=== PATIENT | male | born 1990 ===

== ENCOUNTER 2017-08-31 19:34 | Emergency (ER) | payer OTHER ==
[2017-08-31] MEDS ORDERED: BACIGUENT PACKET TP ONE (19:46)
[2017-08-31] MEDS ORDERED: Sodium Chloride 0.9% 1000 ML 1,000 ML IV STA (19:48)
[2017-08-31 19:49] VITALS: BP 135/87; O2SAT 100
[2017-08-31] MEDS ORDERED: MORPHINE SULFATE 4 MG INJ IV ONE (19:49)
[2017-08-31] MEDS ORDERED: Zofran 4 MG/2 ML VIAL IV ONE (19:49)
[2017-08-31] MEDS ORDERED: Adacel Vial IM ONE ×2 (19:50→19:57)
[2017-08-31] MEDS ORDERED: Zofran 4 MG/2 ML VIAL ONE (19:53)
[2017-08-31] MEDS ORDERED: MORPHINE SULFATE 4 MG INJ ONE (19:53)
[2017-08-31] MEDS ORDERED: Sodium Chloride 0.9% 1000 ML 1,000 ML ONE (19:53)
[2017-08-31] MEDS ORDERED: BACIGUENT PACKET ONE (19:53)
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
[2017-08-31 20:29] VITALS: PULSE 102
== END 2017-08-31 20:31 | disposition short-term general hospital (02) ==
LOC: ED 19:34
DX: T20.20XA Burn of second degree of head, face, and neck, unspecified site, initial encounter (principal); T20.22XA Burn of second degree of lip(s), initial encounter; T23.202A Burn of second degree of left hand, unspecified site, initial encounter; T21.21XA Burn of second degree of chest wall, initial encounter; W40.1XXA Explosion of explosive gases, initial encounter
CPT/HCPCS: 36000; 90471; 90715; 96360; 96372; 96374; 96375; 99291; J2270; J2405; A9270-GY

== ENCOUNTER 2021-03-14 21:55 | Emergency (ER) | payer BC ==
[2021-03-14 21:57] VITALS: O2SAT 100
[2021-03-14] MEDS ORDERED: MORPHINE SULFATE 4 MG INJ IV ONE (22:21)
[2021-03-14] MEDS ORDERED: Zofran 4 MG/2 ML VIAL IV ONE (22:21)
[2021-03-14] MEDS ORDERED: Sodium Chloride 0.9% 1000 ML 1,000 ML IV STA (22:21)
[2021-03-14] MEDS ORDERED: GI COCKTAIL 45 ML (Maalox/Lidocaine) PO ONE (22:21)
[2021-03-14] MEDS ORDERED: PROTONIX 40 MG IV IV ONE ×2 (22:21→22:42)
--- NOTE | 2021-03-14 22:23 | ERPHSYRPT ---
- History of Present Illness Time Seen by Provider: 03/14/21 22:00 Historian: patient Exam Limitations: no limitations Patient Subjective Stated Complaint: I've had this terrible abd pain that started about 2109. Triage Nursing Assessment: pt c/o mid upper abd pain that goes around like a band on both sides to his back. Abd soft with active bs x4 quad, tender on palpation. Pt ate around 6pm, pain started around 2109. Pt had similar incidence to this a few months ago and was seen at [facility] but they told him "nothing was wrong". Pt was not scanned according to him. Lungs clear, heart tones reg. Physician History: 30 years old male presented in the ER with chief complaint of sudden onset upper abdominal/epigastric pain almost an hour prior to arrival, constant, moderate to severe intensity with associated nausea and vomiting nonprojectile, nonbilious without hematemesis. Reports having bandlike feeling. No chest pain. Reports having similar symptoms few weeks ago. No shortness of breath. Timing/Duration: hour(s) (1), constant, sudden, worse Activities at Onset: rest Quality: sharpness, stabbing Abdominal Pain Onset Location: RUQ, LUQ, epigastric Pain Radiation: back Severity of Pain-Max: severe Severity of Pain-Current: severe Modifying Factors: Improves With: nothing Associated Symptoms: nausea Previous symptoms: same symptoms as today Allergies/Adverse Reactions: No Known Drug Allergies Allergy (Verified 03/14/21 22:06) Home Medications: No Home Meds [No Home Meds] 1 [facility] UD 08/08/15 [History] Hx Tetanus, Diphtheria Vaccination/Date Given: Yes Hx Influenza Vaccination/Date Given: No Hx Pneumococcal Vaccination/Date Given: No Immunizations Up to Date: Yes Travel Risk - International Travel Have you traveled outside of the country in past 3 weeks: No - Coronavirus Screening Are you exhibiting any of the following symptoms?: No Close contact with a COVID-19 positive Pt in past 14-21 Days: No - Vaccine Status Have you recieved a Covid-19 vaccination: No - Review of Systems Constitutional: No Symptoms Eyes: No Symptoms Ears, Nose, & Throat: No Symptoms Respiratory: No Symptoms Cardiac: No Symptoms Abdominal/Gastrointestinal: Abdominal Pain, Nausea Genitourinary Symptoms: No Symptoms Musculoskeletal: No Symptoms Skin: No Symptoms Neurological: No Symptoms Psychological: No Symptoms Endocrine: No Symptoms Hematologic/Lymphatic: No Symptoms Immunological/Allergic: No Symptoms - Past Medical History Pertinent Past Medical History: Yes Cardiac History: Hypertension Musculoskeletal History: Fractures - Past Surgical History Past Surgical History: No - Social History Smoking Status: Never smoker Exposure to second hand smoke: Yes Drug Use: none Patient Lives Alone: No - Nursing Vital Signs Nursing Vital Signs: Initial Vital Signs Temperature 98.2 F 03/14/21 21:56 Pulse Rate 75 03/14/21 21:56 Respiratory Rate 22 03/14/21 21:56 Blood Pressure 106/106 03/14/21 21:56 O2 Sat by Pulse Oximetry 100 03/14/21 21:56 Pain Scale Pain Intensity 0 - Physical Exam General Appearance: no apparent distress, alert, anxiety Eye Exam: PERRL/EOMI Ears, Nose, Throat Exam: normal ENT inspection Neck Exam: normal inspection, full range of motion Respiratory Exam: normal breath sounds, lungs clear Cardiovascular Exam: regular rate/rhythm, normal heart sounds Gastrointestinal/Abdomen Exam: soft, normal bowel sounds, tenderness (Epigastrium/right upper and left upper quadrant with some guarding on the right.) Back Exam: normal inspection, normal range of motion Extremity Exam: normal inspection, normal range of motion Neurologic Exam: alert, oriented x 3, cooperative Skin Exam: normal color SpO2 Interpretation: normal SpO2: 100 O2 Delivery: Room Air Ordered Tests: Medication Summary Discontinued Medications Generic Name Dose Route Start Last Admin Trade Name Freq PRN Reason Stop Dose Admin Al Hydrox/Mg Hydrox/Simethicone Confirm 03/14/21 22:45 Maalox Es 30 Ml Unit Dose Administered 03/14/21 22:46 Dose 30 ml .ROUTE .STK-MED ONE Sodium Chloride 1,000 mls @ 999 mls/hr 03/14/21 22:21 03/14/21 22:54 Sodium Chloride 0.9% 1000 Ml IV 03/14/21 23:21 999 mls/hr .Q1H1M STA Administration Sodium Chloride Confirm 03/14/21 22:45 Sodium Chloride 0.9% 1000 Ml Administered 03/14/21 22:46 Dose 1,000 mls @ ud .ROUTE .STK-MED ONE Lidocaine HCl Confirm 03/14/21 22:44 Xylocaine Hcl Viscous * Administered 03/14/21 22:45 Dose 15 ml .ROUTE .STK-MED ONE Magnesium Hydroxide 45 ml 03/14/21 22:21 03/14/21 22:55 Gi Cocktail 45 Ml (Maalox/Lidocaine) PO 03/14/21 22:22 45 ml STAT ONE Administration Morphine Sulfate 4 mg 03/14/21 22:21 03/14/21 22:53 Morphine Sulfate 4 Mg Inj IV 03/14/21 22:22 4 mg STAT ONE Administration Morphine Sulfate Confirm 03/14/21 22:43 Morphine Sulfate 4 Mg Inj Administered 03/14/21 22:44 Dose 4 mg .ROUTE .STK-MED ONE Ondansetron HCl 4 mg 03/14/21 22:21 03/14/21 22:53 Zofran 4 Mg/2 Ml Vial IV 03/14/21 22:22 4 mg STAT ONE Administration Ondansetron HCl Confirm 03/14/21 22:42 Zofran 4 Mg/2 Ml Vial Administered 03/14/21 22:43 Dose 4 mg .ROUTE .STK-MED ONE Pantoprazole Sodium 40 mg 03/14/21 22:21 03/14/21 22:54 Protonix 40 Mg Iv IV 03/14/21 22:22 40 mg STAT ONE Administration Pantoprazole Sodium Confirm 03/14/21 22:42 Protonix 40 Mg Iv Administered 03/14/21 22:43 Dose 40 mg IV .STK-MED ONE Lab/Rad Data: Laboratory Result Diagrams 03/14/21 22:39 03/14/21 22:39 Laboratory Results 03/14/21 03/14/21 03/14/21 Range/Units 22:39 22:39 22:39 WBC 9.9 (4.0-10.5) K/mm3 RBC 5.14 (4.1-5.6) M/mm3 Hgb 15.0 (12.5-18.0) gm/dl Hct 43.9 (42-50) % MCV 85.4 (78-100) fl MCH 29.2 (26-32) pg MCHC 34.2 (32-36) g/dl RDW 13.1 (11.5-14.0) % Plt Count 212 (150-450) K/mm3 MPV 10.4 (7.5-11.0) fl Gran % 34.5 L (36.0-66.0) % Eos # (Auto) 0.16 (0-0.5) Absolute Lymphs (auto) 5.43 H (1.0-4.6) Absolute Monos (auto) 0.89 (0.0-1.3) Lymphocytes % 54.7 H (24.0-44.0) % Monocytes % 9.0 (0.0-12.0) % Eosinophils % 1.6 (0.00-5.0) % Basophils % 0.2 (0.0-0.4) % Absolute Granulocytes 3.42 (1.4-6.9) Basophils # 0.02 (0-0.4) Sodium 143 (137-145) mmol/L Potassium 3.7 (3.5-5.1) mmol/L Chloride 107 (98-107) mmol/L Carbon Dioxide 24 (22-30) mmol/L Anion Gap 15.4 H (5-15) MEQ/L BUN 16 (9-20) mg/dL Creatinine 1.06 (0.66-1.25) mg/dL Estimated GFR > 60.0 ML/MIN Glucose 97 (74-106) mg/dL Calcium 10.0 (8.4-10.2) mg/dL Total Bilirubin 0.60 (0.2-1.3) mg/dL AST 47 (17-59) U/L ALT 38 (0-50) U/L Alkaline Phosphatase 76 (38-126) U/L Troponin I < 0.012 (0.000-0.034) ng/mL Serum Total Protein 7.9 (6.3-8.2) g/dL Albumin 4.7 (3.5-5.0) g/dL Amylase 47 (30-110) U/L Lipase 36 (23-300) U/L Slides for Path Review YES - Progress Progress: improved Progress Note: 03/14/21 23:49 She is given morphine along with Zofran and GI cocktail/Protonix, on reevalu ation his pain is completely resolved. Patient work-up is negative for acute abdomen including CT abdomen pelvis with contrast. Probably have some gastritis. We will continue with Protonix to go home and outpatient follow-up recommended. Discussed signs symptoms of worsening needing return to ER which he seems understanding. Counseled pt/family regarding: lab results, diagnosis, need for follow-up, rad results - Departure Departure Disposition: Home Clinical Impression: Upper abdominal pain Condition: Stable Critical Care Time: No Referrals: JERAD BOB MD [Primary Care Provider] - (Call tomorrow for reevaluation) Instructions: Acute Abdomen (Belly Pain), Adult (DC) Additional Instructions: Follow-up with primary care physician for reevaluation and may need an ultrasound of gallbladder. Continue with Protonix. Take Tylenol as needed. Do not take ibuprofen. Return to ER for worsening abdominal pain, vomiting, fever chills etc. Prescriptions: PANTOPRAZOLE 40 mg Tablet [Protonix 40MG Tablet] 40 mg PO QAM #30 tab
[2021-03-14 22:42] LABS: Absolute Neutrophil Ct (ANC) 3.42 (1.4-6.9); BASOPHIL % 0.2 % (0.0-0.4); Basophil (Absolute #) 0.02 (0-0.4); Eosinophil % 1.6 % (0.00-5.0); Eosinophil (Absolute #) 0.16 (0-0.5); Hematocrit 43.9 % (42-50); Lymphocyte (Absolute #) 5.43 (1.0-4.6); Lymphocytes % 54.7 % (24.0-44.0); Mean Cell Volume 85.4 fl (78-100); Mean Corpuscular Hemoglobin 29.2 pg (26-32); Mean Corpuscular Hgb Concent. 34.2 g/dl (32-36); Mean Platelet Volume 10.4 fl (7.5-11.0); Monocyte (Absolute #) 0.89 (0.0-1.3); Neutrophil % 34.5 % (36.0-66.0); Platelet Count 212 K/mm3 (150-450); Red Blood Count 5.14 M/mm3 (4.1-5.6); Red Cell Distribution Width 13.1 % (11.5-14.0); White Blood Count 9.9 K/mm3 (4.0-10.5)
[2021-03-14] MEDS ORDERED: Zofran 4 MG/2 ML VIAL ONE (22:42)
[2021-03-14] MEDS ORDERED: MORPHINE SULFATE 4 MG INJ ONE (22:43)
[2021-03-14] MEDS ORDERED: XYLOCAINE HCl Viscous ONE (22:44)
[2021-03-14] MEDS ORDERED: Sodium Chloride 0.9% 1000 ML 1,000 ML ONE (22:45)
[2021-03-14] MEDS ORDERED: MAALOX ES 30 ML UNIT DOSE ONE (22:45)
[2021-03-14 22:54] LABS: ALBUMIN 4.7 g/dL (3.5-5.0); ALKALINE PHOSPHATASE 76 U/L (38-126); AMYLASE 47 U/L (30-110); ANION GAP 15.4 MEQ/L (5-15); BLOOD UREA NITROGEN 16 mg/dL (9-20); CHLORIDE 107 mmol/L (98-107); Carbon Dioxide 24 mmol/L (22-30); Creatinine 1 1.06 mg/dL (0.66-1.25); EST GLOMERULAR FILTRATION RATE > 60.0 ML/MIN; Glucose 97 mg/dL (74-106); LIPASE 36 U/L (23-300); Potassium 3.7 mmol/L (3.5-5.1); SGOT/AST 47 U/L (17-59); SGPT/ALT 38 U/L (0-50); SODIUM 143 mmol/L (137-145); Total Protein 7.9 g/dL (6.3-8.2)
[2021-03-14 23:40] VITALS: BP 119/78; PULSE 71
[2021-03-15 00:41] LABS: Slide Review 1 YES
--- NOTE | 2021-03-15 08:50 | XRAY ---
Indication: Abdomen pain. Multiple contiguous axial images obtained through the abdomen and pelvis using 80 cc Isovue 370 contrast. Comparison: None. Lung bases are clear. Heart is not enlarged. Stomach is distended with food/fluid. Noncontrasted stomach and bowel loops appear nonobstructed. Normal appendix. No free fluid/air. 1 cm left mid renal cortical cyst. Remaining liver, gallbladder, pancreas, spleen, adrenal glands, kidneys, ureters, bladder, and aorta are unremarkable. No pathologic retroperitoneal lymphadenopathy. Osseous structures intact. No ventral or inguinal hernias. Impression: 1. Left renal cyst. 2. Remaining CT abdomen/pelvis with contrast exam is negative. Comment: Preliminary interpretation made by [facility]. No critical discrepancy.
== END 2021-03-14 23:50 | disposition home or self-care (01) ==
LOC: ED 21:55
DX: R10.10 Upper abdominal pain, unspecified (principal); R11.10 Vomiting, unspecified; R50.9 Fever, unspecified
CPT/HCPCS: 36000; 36415; 74177; 80053; 82150; 83690; 84484; 85025; 93005; 96374; 96375; 99284; J2270; J2405; A9270-GY